=== PATIENT | male | born 1975 | race Caucasian/White ===

== ENCOUNTER 2021-04-23 20:45 | Observation (INO) ==
[2021-04-23 21:48] LABS: Hematocrit 40.4 % (37.5-50.1); Hemoglobin 13.7 g/dL (12.9-16.9); Immature Granulocytes % 0.6 % (0-4); Lymphocytes # 0.3 K/mcL (0.6-4.6); Mean Corpuscular HGB Conc 33.9 g/dL (31.6-35.5); Mean Corpuscular Hemoglobin 28.7 pg (28.0-33.3); Mean Corpuscular Volume 84.5 fL (83.0-100.0); Mean Platelet Volume 10.5 fL (9.4-12.4); Monocytes # 0.5 K/mcL (0.0-1.3); Monocytes % 7.8 %; Neutrophils # 5.5 K/mcL (1.6-8.9); Platelet Count 145 K/mcL (140-400); Red Blood Count 4.78 M/mcL (4.19-5.50); Red Cell Distribution Width 13.2 % (11.5-14.5); Segmented Neutrophils % 86.6 %; White Blood Count 6.4 K/mcL (4.3-11.1)
[2021-04-23 22:17] LABS: Acetaminophen < 10 mcg/mL (10-20); Alanine Aminotransferase 20 Units/L (7-52); Albumin 3.7 g/dL (3.5-5.7); Albumin/Globulin Ratio 1.2 (1.1-2.2); Alkaline Phosphatase 51 Units/L (34-104); Aspartate Amino Transferase 12 Units/L (13-39); BUN/Creatinine Ratio 22 (6-26); Bilirubin,Indirect 0.3 mg/dL (0.0-1.0); Bilirubin,Total 0.3 mg/dL (0.3-1.0); Blood Urea Nitrogen 15 mg/dL (6-20); Carbon Dioxide 27 mEq/L (23-29); Ethanol < 10 mg/dL (Less than 10); Globulin 3.1 g/dL (2.4-3.5); Glucose 114 mg/dL (70-105); Salicylate < 2.5 mg/dL (15.0-30.0); Total Protein 6.8 g/dL (6.4-8.9); eGFR For African Americans > 60 (> 60); eGFR For Non-African Americans > 60 (> 60)
[2021-04-23 22:21] LABS: Bilirubin,Urine Negative (Negative); Blood,Urine Negative (Negative); Clarity,Urine Clear (Clear); Color,Urine Colorless (Yellow); Glucose,Urine (UA) Normal (Normal); Ketones,Urine Negative (Negative); Leukocyte Esterase,Urine Negative (Negative); Nitrite,Urine Negative (Negative); Protein,Urine Negative (Neg-Trace); Specific Gravity,Urine 1.008 (1.010-1.025); Urobilinogen,Urine Normal (Normal)
[2021-04-23 22:24] LABS: Chloride 97 mEq/L (98-107); Osmolality,Calculated 276 (280-300); Potassium 4.8 mEq/L (3.5-5.1); Sodium 132 mEq/L (136-145)
[2021-04-23 22:30] LABS: Amphetamine Screen,Urine Negative ng/mL (Cutoff=1000); Barbiturate Screen,Urine Negative ng/mL (Cutoff=200); Benzodiazepines Screen,Urine Negative ng/mL (Cutoff=200); Cannabinoid Screen,Urine Negative ng/mL (Cutoff = 50); Cocaine Screen,Urine Negative ng/mL (Cutoff= 300); Opiate Screen,Urine Negative ng/mL (Cutoff=300); Phencyclidine Screen,Urine Negative ng/mL (Cutoff=25)
[2021-04-24 01:43] LABS: Influenza A PCR Negative (Negative); Influenza B PCR Negative (Negative); Resp. Syncytial Virus PCR Negative (Negative)
[2021-04-24 01:49] LABS: SARS-CoV-2 by PCR (In House) Positive (Negative)
[2021-04-24] MEDS ORDERED: *HR* HYDROcodone/Acet 5/325 mg TABLET PO PRN (02:26)
[2021-04-24] MEDS ORDERED: Melatonin 3 MG TABLET PO PRN (02:26)
[2021-04-24] MEDS ORDERED: MOM Conc 10 ML UD.LIQ PO PRN (02:26)
[2021-04-24] MEDS ORDERED: Ondansetron ODT 4 MG TAB.RAPDIS SL PRN (02:26)
[2021-04-24] MEDS ORDERED: Acetaminophen 325 MG TABLET PO PRN (02:26)
[2021-04-24] MEDS ORDERED: Naloxone 0.4 MG/ML INJ IVP PRN (02:26)
[2021-04-24 06:03] LABS: Hemoglobin 12.8 g/dL (12.9-16.9); Immature Granulocytes % 0.6 % (0-4); White Blood Count 5.1 K/mcL (4.3-11.1)
[2021-04-24 06:04] LABS: Basophils % 0.2 %; Eosinophils % 0.4 %; Hematocrit 39.4 % (37.5-50.1); Immature Platelets 6.5 % (1.1-6.1); Lymphocytes # 0.6 K/mcL (0.6-4.6); Lymphocytes % 11.4 %; Mean Corpuscular HGB Conc 32.5 g/dL (31.6-35.5); Mean Corpuscular Hemoglobin 27.8 pg (28.0-33.3); Mean Corpuscular Volume 85.5 fL (83.0-100.0); Mean Platelet Volume 10.6 fL (9.4-12.4); Monocytes # 0.4 K/mcL (0.0-1.3); Monocytes % 8.6 %; Platelet Count 134 K/mcL (140-400); Red Blood Count 4.61 M/mcL (4.19-5.50); Red Cell Distribution Width 13.5 % (11.5-14.5); Segmented Neutrophils % 78.8 %
[2021-04-24 07:36] LABS: BUN/Creatinine Ratio 23 (6-26); Blood Urea Nitrogen 16 mg/dL (6-20); Calcium 8.9 mg/dL (8.6-10.3); Carbon Dioxide 24 mEq/L (23-29); Chloride 98 mEq/L (98-107); Glucose 136 mg/dL (70-105); Osmolality,Calculated 277 (280-300); Potassium 4.1 mEq/L (3.5-5.1); Sodium 132 mEq/L (136-145); eGFR For African Americans > 60 (> 60); eGFR For Non-African Americans > 60 (> 60)
[2021-04-24] MEDS ORDERED: Benzonatate 100 MG CAPSULE PO PRN (10:34)
[2021-04-24 11:55] LABS: Estimated Average Glucose 126 mg/dl
[2021-04-25 02:47] VITALS: PULSE 51
[2021-04-25] MEDS ORDERED: *HR* Enoxaparin 40 MG/0.4 ML SYRINGE SQ SCH (06:00)
[2021-04-25 06:50] VITALS: BP 106/57; TEMP 98.4; O2SAT 97
== END 2021-04-25 12:15 | disposition home or self-care (01) ==
LOC: EMEROOARM 20:45 → 3ANU 20:45
PROVIDERS: ADMIT Internal Medicine; ATTEND Internal Medicine

== ENCOUNTER 2021-06-02 01:13 | Observation (INO) ==
[2021-06-02 01:56] LABS: Amphetamine Screen,Urine Negative ng/mL (Cutoff=1000); Barbiturate Screen,Urine Negative ng/mL (Cutoff=200); Benzodiazepines Screen,Urine Negative ng/mL (Cutoff=200); Cannabinoid Screen,Urine Negative ng/mL (Cutoff = 50); Cocaine Screen,Urine Negative ng/mL (Cutoff= 300); Opiate Screen,Urine Negative ng/mL (Cutoff=300); Phencyclidine Screen,Urine Negative ng/mL (Cutoff=25)
[2021-06-02 02:03] LABS: Acetaminophen < 10 mcg/mL (10-20); Alanine Aminotransferase 18 Units/L (7-52); Albumin/Globulin Ratio 1.2 (1.1-2.2); Alkaline Phosphatase 59 Units/L (34-104); Aspartate Amino Transferase 10 Units/L (13-39); BUN/Creatinine Ratio 16 (6-26); Bilirubin,Indirect 0.3 mg/dL (0.0-1.0); Bilirubin,Total 0.3 mg/dL (0.3-1.0); Blood Urea Nitrogen 12 mg/dL (6-20); Calcium 9.4 mg/dL (8.6-10.3); Carbon Dioxide 26 mEq/L (23-29); Chloride 98 mEq/L (98-107); Chol/HDL Ratio 4.1 (0-4.9); Cholesterol 173 mg/dL (< 200); Ethanol < 10 mg/dL (Less than 10); Globulin 3.3 g/dL (2.4-3.5); Glucose 198 mg/dL (70-105); HDL Cholesterol 42 mg/dL (40-59); LDL Cholesterol,Calculated 88 mg/dL (< 100); Osmolality,Calculated 279 (280-300); Potassium 4.3 mEq/L (3.5-5.1); Salicylate 2.5 mg/dL (15.0-30.0); Sodium 132 mEq/L (136-145); Total Protein 7.3 g/dL (6.4-8.9); Triglycerides 213 mg/dL (< 150); eGFR For African Americans > 60 (> 60); eGFR For Non-African Americans > 60 (> 60)
[2021-06-02 02:05] LABS: Bilirubin,Urine Negative (Negative); Blood,Urine Negative (Negative); Clarity,Urine Clear (Clear); Color,Urine Light-Yellow (Yellow); Glucose,Urine (UA) Normal (Normal); Ketones,Urine Negative (Negative); Leukocyte Esterase,Urine Negative (Negative); Nitrite,Urine Negative (Negative); PH,Urine 7.5 pH Units (5.0-8.0); Protein,Urine Trace mg/dL (Neg-Trace); Specific Gravity,Urine > 1.030 (1.010-1.025); Urobilinogen,Urine Normal (Normal)
[2021-06-02 02:18] LABS: Basophils % 0.1 %; Hematocrit 36.2 % (37.5-50.1); Immature Granulocytes % 0.1 % (0-4); Lymphocytes # 0.1 K/mcL (0.6-4.6); Lymphocytes % 1.9 %; Mean Corpuscular HGB Conc 33.1 g/dL (31.6-35.5); Mean Corpuscular Hemoglobin 28.6 pg (28.0-33.3); Mean Corpuscular Volume 86.4 fL (83.0-100.0); Mean Platelet Volume 10.7 fL (9.4-12.4); Monocytes # 0.2 K/mcL (0.0-1.3); Monocytes % 2.4 %; Neutrophils # 6.7 K/mcL (1.6-8.9); Platelet Count 107 K/mcL (140-400); Red Blood Count 4.19 M/mcL (4.19-5.50); Red Cell Distribution Width 16.5 % (11.5-14.5); Segmented Neutrophils % 95.5 %
[2021-06-02 02:26] LABS: Estimated Average Glucose 128 mg/dl; Hemoglobin A1C 6.1 %
[2021-06-02 05:23] LABS: Influenza A PCR Negative (Negative); Influenza B PCR Negative (Negative); Resp. Syncytial Virus PCR Negative (Negative)
[2021-06-02 05:24] LABS: SARS-CoV-2 by PCR (In House) Negative (Negative)
[2021-06-02] MEDS ORDERED: haloperidoL 5 MG TABLET PO PRN (12:05)
[2021-06-02] MEDS ORDERED: *HR* LORazepam 2 MG/ML VIAL IM PRN (12:05)
[2021-06-02] MEDS ORDERED: Mag Hydrox/Al Hydrox/Simeth 30 ML UDC PO PRN (12:05)
[2021-06-02] MEDS ORDERED: *HR* LORazepam 1 MG TABLET PO PRN (12:05)
[2021-06-02] MEDS ORDERED: Haloperidol Lactate 5 MG/ML VIAL IM PRN (12:05)
[2021-06-02] MEDS ORDERED: traZODone 50 MG TABLET PO PRN (12:05)
[2021-06-02] MEDS ORDERED: hydrOXYzine pamoate 25 MG CAPSULE PO PRN (12:05)
[2021-06-02] MEDS ORDERED: Magic Mouthwash 10 ML UD Cup PO PRN (12:09)
[2021-06-02] MEDS ORDERED: *HR* LORazepam 0.5 MG TABLET PO PRN (12:10)
[2021-06-02] MEDS ORDERED: Ondansetron ODT 4 MG TAB.RAPDIS SL PRN (12:11)
[2021-06-02] MEDS: Nicotine 21 MG PATCH.TD24 TD SCH (15:36)
[2021-06-02] MEDS: Sucralfate 1 GM TABLET PO SCH (17:09)
[2021-06-02] MEDS: MOM Conc 10 ML UD.LIQ PO PRN (17:13)
[2021-06-02] MEDS: Acetaminophen 325 MG TABLET PO PRN (20:58)
[2021-06-03] MEDS ORDERED: Nicotine 21 MG PATCH.TD24 TD SCH (09:00)
[2021-06-03] MEDS: Sucralfate 1 GM TABLET PO SCH ×2 (09:04→11:36)
[2021-06-03] MEDS: Nicotine 21 MG PATCH.TD24 TD SCH (09:04)
[2021-06-03] MEDS: Acetaminophen 325 MG TABLET PO PRN (09:08)
[2021-06-03 09:24] VITALS: BP 113/66; PULSE 80; TEMP 96.9; O2SAT 99
[2021-06-03] MEDS: MOM Conc 10 ML UD.LIQ PO PRN (11:19)
== END 2021-06-03 15:40 | disposition home or self-care (01) ==
LOC: EMEROOARM 01:13 → INTOOBSV 10:09 → 1ANU 10:09
PROVIDERS: ADMIT Psychiatry & Neurology Psychiatry; ATTEND Psychiatry & Neurology Psychiatry

== ENCOUNTER 2021-08-25 10:03 | Observation (INO) ==
[2021-08-25] MEDS ORDERED: Iopamidol - 370 500 ML MLS IVP ONE (11:16)
[2021-08-25] MEDS ORDERED: *HR* OxyCODONE Immed Rel 5 MG TABLET PO ONE (11:17)
[2021-08-25 12:29] LABS: Basophils % 0.6 %; Eosinophils # 0.1 K/mcL (0.0-0.6); Eosinophils % 2.4 %; Hematocrit 38.2 % (37.5-50.1); Hemoglobin 11.5 g/dL (12.9-16.9); Immature Granulocytes % 0.9 % (0-4); Lymphocytes # 0.4 K/mcL (0.6-4.6); Mean Corpuscular HGB Conc 30.1 g/dL (31.6-35.5); Mean Corpuscular Hemoglobin 29.5 pg (28.0-33.3); Mean Corpuscular Volume 97.9 fL (83.0-100.0); Mean Platelet Volume 9.9 fL (9.4-12.4); Monocytes # 0.4 K/mcL (0.0-1.3); Monocytes % 12.8 %; Neutrophils # 2.4 K/mcL (1.6-8.9); Platelet Count 230 K/mcL (140-400); Red Cell Distribution Width 13.7 % (11.5-14.5); Segmented Neutrophils % 72.3 %; White Blood Count 3.4 K/mcL (4.3-11.1)
[2021-08-25 12:54] LABS: Alanine Aminotransferase 10 Units/L (7-52); Albumin/Globulin Ratio 1.3 (1.1-2.2); Alkaline Phosphatase 60 Units/L (34-104); Aspartate Amino Transferase 11 Units/L (13-39); BUN/Creatinine Ratio 26 (6-26); Bilirubin,Total 0.3 mg/dL (0.3-1.0); Blood Urea Nitrogen 26 mg/dL (6-20); Calcium 9.4 mg/dL (8.6-10.3); Carbon Dioxide 29 mEq/L (23-29); Chloride 104 mEq/L (98-107); Globulin 3.1 g/dL (2.4-3.5); Glucose 84 mg/dL (70-105); Osmolality,Calculated 292 (280-300); Potassium 4.4 mEq/L (3.5-5.1); Sodium 139 mEq/L (136-145); Total Protein 7.1 g/dL (6.4-8.9); Troponin I < 0.03 ng/mL (< 0.04); eGFR For African Americans > 60 (> 60); eGFR For Non-African Americans > 60 (> 60)
[2021-08-25 15:45] LABS: Acetaminophen < 10 mcg/mL (10-20); Ethanol < 10 mg/dL (Less than 10); Salicylate < 2.5 mg/dL (15.0-30.0)
[2021-08-25] MEDS ORDERED: cephALEXin 500 MG CAPSULE PO ONE (18:00)
[2021-08-25 18:10] LABS: Bilirubin,Urine Negative (Negative); Blood,Urine Negative (Negative); Clarity,Urine Clear (Clear); Color,Urine Light-Yellow (Yellow); Glucose,Urine (UA) Normal (Normal); Ketones,Urine Negative (Negative); Leukocyte Esterase,Urine Negative (Negative); Nitrite,Urine Negative (Negative); PH,Urine 6.5 pH Units (5.0-8.0); Protein,Urine Negative (Neg-Trace); Specific Gravity,Urine > 1.030 (1.010-1.025); Urobilinogen,Urine Normal (Normal)
[2021-08-25 18:16] LABS: Amphetamine Screen,Urine Negative ng/mL (Cutoff=1000); Barbiturate Screen,Urine Negative ng/mL (Cutoff=200); Benzodiazepines Screen,Urine Negative ng/mL (Cutoff=200); Cannabinoid Screen,Urine Negative ng/mL (Cutoff = 50); Cocaine Screen,Urine Negative ng/mL (Cutoff= 300); Opiate Screen,Urine Negative ng/mL (Cutoff=300); Phencyclidine Screen,Urine Negative ng/mL (Cutoff=25)
[2021-08-25] MEDS ORDERED: Ondansetron ODT 4 MG TAB.RAPDIS SL PRN ×2 (21:45→23:48)
[2021-08-25] MEDS: *HR* LORazepam 0.5 MG TABLET PO PRN (22:08)
[2021-08-25] MEDS ORDERED: Naloxone 0.4 MG/ML INJ IVP PRN (23:48)
[2021-08-26] MEDS ORDERED: Ketorolac 30 MG/ML VIAL IVP PRN (00:30)
[2021-08-26] MEDS: Acetaminophen 325 MG TABLET PO PRN (05:08)
[2021-08-26] MEDS: Sucralfate 1 GM TABLET PO SCH ×3 (09:08→17:24)
[2021-08-26] MEDS: Magic Mouthwash 10 ML UD Cup PO SCH ×3 (09:08→18:19)
[2021-08-26] MEDS: Nicotine 21 MG PATCH.TD24 TD SCH (09:08)
[2021-08-26] MEDS: cephALEXin 500 MG CAPSULE PO SCH ×3 (13:34→21:16)
[2021-08-26] MEDS: Chloraseptic Spray 177 ML BOTTLE PO SCH ×2 (13:34→21:16)
[2021-08-26] MEDS: Famotidine 20 MG TABLET PO SCH ×2 (13:35→17:24)
[2021-08-27] MEDS: Artificial Tears SOLN 15 ML BOTTLE BOTH EYES SCH ×5 (04:56→20:39)
[2021-08-27] MEDS: *HR* LORazepam 0.5 MG TABLET PO PRN ×2 (06:00→20:36)
[2021-08-27] MEDS ORDERED: Iopamidol - 370 500 ML MLS IVP ONE (08:49)
[2021-08-27] MEDS: Nicotine 21 MG PATCH.TD24 TD SCH (10:02)
[2021-08-27] MEDS: Magic Mouthwash 10 ML UD Cup PO SCH ×3 (10:47→15:57)
[2021-08-27] MEDS: Chloraseptic Spray 177 ML BOTTLE PO SCH ×2 (10:48→20:38)
[2021-08-27] MEDS: Famotidine 20 MG TABLET PO SCH ×2 (10:48→16:31)
[2021-08-27] MEDS: Sucralfate 1 GM TABLET PO SCH ×3 (10:48→16:33)
[2021-08-27] MEDS: cephALEXin 500 MG CAPSULE PO SCH ×4 (10:48→20:36)
[2021-08-27] MEDS ORDERED: polyethylene glycoL 3350 17 GM POWD.PACK PO PRN (13:27)
[2021-08-28] MEDS: *HR* LORazepam 0.5 MG TABLET PO PRN ×2 (03:57→16:20)
[2021-08-28] MEDS: Famotidine 20 MG TABLET PO SCH ×2 (06:21→16:20)
[2021-08-28] MEDS: Magic Mouthwash 10 ML UD Cup PO SCH ×3 (06:22→16:20)
[2021-08-28] MEDS: Sucralfate 1 GM TABLET PO SCH ×3 (06:22→16:20)
[2021-08-28] MEDS: Nicotine 21 MG PATCH.TD24 TD SCH (08:17)
[2021-08-28] MEDS: cephALEXin 500 MG CAPSULE PO SCH (08:17)
[2021-08-28] MEDS: Artificial Tears SOLN 15 ML BOTTLE BOTH EYES SCH ×4 (08:19→20:43)
[2021-08-28] MEDS: Chloraseptic Spray 177 ML BOTTLE PO SCH ×2 (08:19→20:44)
[2021-08-28 10:09] LABS: Basophils % 0.5 %; Eosinophils # 0.1 K/mcL (0.0-0.6); Eosinophils % 1.7 %; Hematocrit 38.7 % (37.5-50.1); Hemoglobin 12.2 g/dL (12.9-16.9); Immature Granulocytes % 0.7 % (0-4); Lymphocytes # 0.5 K/mcL (0.6-4.6); Mean Corpuscular HGB Conc 31.5 g/dL (31.6-35.5); Mean Corpuscular Hemoglobin 29.6 pg (28.0-33.3); Mean Corpuscular Volume 93.9 fL (83.0-100.0); Mean Platelet Volume 9.7 fL (9.4-12.4); Monocytes # 0.5 K/mcL (0.0-1.3); Neutrophils # 2.9 K/mcL (1.6-8.9); Platelet Count 220 K/mcL (140-400); Red Blood Count 4.12 M/mcL (4.19-5.50); Red Cell Distribution Width 13.4 % (11.5-14.5); Segmented Neutrophils % 72.1 %; White Blood Count 4.1 K/mcL (4.3-11.1)
[2021-08-28] MEDS ORDERED: methylPREDNISolone 125 MG/2 ML VIAL IVP ONE (11:07)
[2021-08-28 12:40] LABS: BUN/Creatinine Ratio 23 (6-26); Blood Urea Nitrogen 18 mg/dL (6-20); Calcium 9.6 mg/dL (8.6-10.3); Carbon Dioxide 27 mEq/L (23-29); Chloride 101 mEq/L (98-107); Glucose 90 mg/dL (70-105); Osmolality,Calculated 283 (280-300); Potassium 4.1 mEq/L (3.5-5.1); Sodium 136 mEq/L (136-145); eGFR For African Americans > 60 (> 60); eGFR For Non-African Americans > 60 (> 60)
[2021-08-29 09:06] LABS: Chol/HDL Ratio 4.5 (0-4.9); Cholesterol 194 mg/dL (< 200); HDL Cholesterol 43 mg/dL (40-59); LDL Cholesterol,Calculated 106 mg/dL (< 100); Triglycerides 227 mg/dL (< 150)
[2021-08-29] MEDS: Artificial Tears SOLN 15 ML BOTTLE BOTH EYES SCH (09:42)
[2021-08-29] MEDS: Magic Mouthwash 10 ML UD Cup PO SCH (09:42)
[2021-08-29] MEDS: Chloraseptic Spray 177 ML BOTTLE PO SCH (09:42)
[2021-08-29] MEDS: Sucralfate 1 GM TABLET PO SCH (09:42)
[2021-08-29] MEDS: Famotidine 20 MG TABLET PO SCH (09:42)
[2021-08-29] MEDS: Nicotine 21 MG PATCH.TD24 TD SCH (09:43)
[2021-08-29 11:29] LABS: Estimated Average Glucose 74 mg/dl; Hemoglobin A1C 4.2 %
[2021-08-29 12:42] LABS: Influenza A PCR Negative (Negative); Influenza B PCR Negative (Negative); Resp. Syncytial Virus PCR Negative (Negative)
[2021-08-29 13:28] LABS: SARS-CoV-2 by PCR (In House) Negative (Negative)
[2021-08-29] MEDS: Acetaminophen 325 MG TABLET PO PRN (13:33)
[2021-08-29 15:40] VITALS: BP 138/74; PULSE 70; TEMP 98.3
[2021-08-29 16:03] VITALS: O2SAT 97
[2021-08-29] MEDS ORDERED: MOM Conc 10 ML UD.LIQ PO PRN (16:05)
[2021-08-29] MEDS ORDERED: Mag Hydrox/Al Hydrox/Simeth 30 ML UDC PO PRN (16:05)
[2021-08-29] MEDS ORDERED: haloperidoL 5 MG TABLET PO PRN (16:05)
[2021-08-29] MEDS ORDERED: *HR* LORazepam 2 MG/ML VIAL IM PRN (16:05)
== END 2021-08-29 16:06 ==
LOC: EMEROOARM 10:03 → 3BNU 10:03 → SUATTDRO 08-26 06:22 → 3BNU 08-26 08:56
PROVIDERS: ADMIT Internal Medicine; ATTEND Registered Nurse

== ENCOUNTER 2021-08-29 16:10 | Inpatient (IN) ==
[2021-08-29] MEDS ORDERED: haloperidoL 5 MG TABLET PO PRN (17:12)
[2021-08-29] MEDS ORDERED: *HR* LORazepam 2 MG/ML VIAL IM PRN (17:12)
[2021-08-29] MEDS ORDERED: Haloperidol Lactate 5 MG/ML VIAL IM PRN (17:12)
[2021-08-29] MEDS ORDERED: *HR* LORazepam 1 MG TABLET PO PRN (17:12)
[2021-08-29] MEDS ORDERED: PHENOL TP PRN (17:54)
[2021-08-29] MEDS ORDERED: CAMPHOR TP PRN (17:54)
[2021-08-29] MEDS: hydrOXYzine pamoate 25 MG CAPSULE PO PRN (18:36)
[2021-08-29] MEDS: Acetaminophen 325 MG TABLET PO PRN (18:55)
[2021-08-29] MEDS ORDERED: CLEAR EYES NATURAL TEARS 15 ML BOTTLE BOTH EYES PRN (19:29)
[2021-08-29] MEDS ORDERED: Chloraseptic Spray 177 ML BOTTLE MM PRN (19:30)
[2021-08-29] MEDS: Famotidine 20 MG TABLET PO SCH (20:54)
[2021-08-29] MEDS: *HR* LORazepam 0.5 MG TABLET PO SCH (20:54)
[2021-08-29] MEDS: traZODone 50 MG TABLET PO PRN (20:54)
[2021-08-30] MEDS: *HR* LORazepam 0.5 MG TABLET PO SCH ×3 (08:45→21:10)
[2021-08-30] MEDS: Famotidine 20 MG TABLET PO SCH ×2 (08:45→21:10)
[2021-08-30] MEDS: Nicotine 21 MG PATCH.TD24 TD SCH (08:46)
[2021-08-30] MEDS ORDERED: Cyprohepatdine 4 MG TABLET PO PRN (12:03)
[2021-08-30] MEDS: Acetaminophen 325 MG TABLET PO PRN (12:06)
[2021-08-30] MEDS: Oxymetazoline Nasal SPRAY BOTTLE 15ML NS PRN (15:20)
[2021-08-30] MEDS: Vicks Vaporub Oint 50 GM PACKAGE TP PRN (21:09)
[2021-08-30] MEDS: hydrOXYzine pamoate 25 MG CAPSULE PO PRN (21:10)
[2021-08-30] MEDS: traZODone 50 MG TABLET PO PRN (21:10)
[2021-08-31] MEDS: Famotidine 20 MG TABLET PO SCH ×2 (10:05→20:11)
[2021-08-31] MEDS: *HR* LORazepam 0.5 MG TABLET PO SCH ×3 (10:05→20:11)
[2021-08-31] MEDS: Nicotine 21 MG PATCH.TD24 TD SCH (10:06)
[2021-08-31] MEDS: Acetaminophen 325 MG TABLET PO PRN ×2 (11:23→19:01)
[2021-08-31] MEDS: Oxymetazoline Nasal SPRAY BOTTLE 15ML NS PRN (11:24)
[2021-08-31] MEDS: Vicks Vaporub Oint 50 GM PACKAGE TP PRN (21:02)
[2021-09-01] MEDS: Famotidine 20 MG TABLET PO SCH (08:47)
[2021-09-01] MEDS: Nicotine 21 MG PATCH.TD24 TD SCH (08:47)
[2021-09-01] MEDS: *HR* LORazepam 0.5 MG TABLET PO SCH (08:47)
[2021-09-01 09:53] VITALS: BP 147/82; PULSE 69; TEMP 96.8; O2SAT 98
[2021-09-01] MEDS: Acetaminophen 325 MG TABLET PO PRN (11:02)
[2021-09-01] MEDS: Oxymetazoline Nasal SPRAY BOTTLE 15ML NS PRN (11:18)
== END 2021-09-01 13:46 | disposition other institution (70) | DRG 751 ==
LOC: 1ANU 16:10 → MERGE 16:10 → 1ANU 16:25
PROVIDERS: ADMIT Psychiatry & Neurology Forensic Psychiatry; ATTEND Psychiatry & Neurology Forensic Psychiatry

== ENCOUNTER 2021-09-01 12:55 | Observation (INO) ==
[2021-09-01] MEDS ORDERED: MOM Conc 10 ML UD.LIQ PO PRN (13:01)
[2021-09-01] MEDS ORDERED: Naloxone 0.4 MG/ML INJ IVP PRN (13:01)
[2021-09-01] MEDS ORDERED: Melatonin 3 MG TABLET PO PRN (13:01)
[2021-09-01] MEDS ORDERED: Mag Hydrox/Al Hydrox/Simeth 30 ML UDC PO PRN (13:01)
[2021-09-01] MEDS ORDERED: Ondansetron ODT 4 MG TAB.RAPDIS SL PRN (13:01)
[2021-09-01] MEDS ORDERED: Iopamidol - 370 500 ML MLS IVP ONE (13:04)
[2021-09-01] MEDS ORDERED: methylPREDNISolone 125 MG/2 ML VIAL IVP ONE (14:27)
[2021-09-01] MEDS ORDERED: Chloraseptic Spray 177 ML BOTTLE MM PRN (14:28)
[2021-09-01] MEDS ORDERED: traZODone 50 MG TABLET PO PRN (14:28)
[2021-09-01] MEDS ORDERED: haloperidoL 5 MG TABLET PO PRN (14:28)
[2021-09-01] MEDS ORDERED: *HR* LORazepam 1 MG TABLET PO PRN (14:28)
[2021-09-01] MEDS ORDERED: hydrOXYzine pamoate 25 MG CAPSULE PO PRN (14:28)
[2021-09-01 14:29] LABS: Basophils % 0.5 %; Eosinophils # 0.1 K/mcL (0.0-0.6); Eosinophils % 1.4 %; Hematocrit 36.5 % (37.5-50.1); Hemoglobin 11.4 g/dL (12.9-16.9); Immature Granulocytes % 1.6 % (0-4); Lymphocytes # 0.7 K/mcL (0.6-4.6); Lymphocytes % 12.1 %; Mean Corpuscular HGB Conc 31.2 g/dL (31.6-35.5); Mean Corpuscular Hemoglobin 29.8 pg (28.0-33.3); Mean Corpuscular Volume 95.5 fL (83.0-100.0); Mean Platelet Volume 10.3 fL (9.4-12.4); Monocytes # 0.6 K/mcL (0.0-1.3); Monocytes % 11.1 %; Neutrophils # 4.1 K/mcL (1.6-8.9); Platelet Count 197 K/mcL (140-400); Red Blood Count 3.82 M/mcL (4.19-5.50); Red Cell Distribution Width 13.2 % (11.5-14.5); Segmented Neutrophils % 73.3 %; White Blood Count 5.6 K/mcL (4.3-11.1)
[2021-09-01] MEDS ORDERED: Vancomycin 1,750 MG/517.5 ML IV.SOLN IVPB ONE (15:00)
[2021-09-01 15:03] LABS: Alanine Aminotransferase 10 Units/L (7-52); Albumin 3.8 g/dL (3.5-5.7); Albumin/Globulin Ratio 1.4 (1.1-2.2); Alkaline Phosphatase 64 Units/L (34-104); Aspartate Amino Transferase 11 Units/L (13-39); BUN/Creatinine Ratio 27 (6-26); Bilirubin,Total 0.2 mg/dL (0.3-1.0); Blood Urea Nitrogen 21 mg/dL (6-20); Calcium 9.1 mg/dL (8.6-10.3); Carbon Dioxide 28 mEq/L (23-29); Chloride 101 mEq/L (98-107); Globulin 2.8 g/dL (2.4-3.5); Glucose 121 mg/dL (70-105); Osmolality,Calculated 290 (280-300); Potassium 4.3 mEq/L (3.5-5.1); Sodium 138 mEq/L (136-145); Total Protein 6.6 g/dL (6.4-8.9); eGFR For African Americans > 60 (> 60); eGFR For Non-African Americans > 60 (> 60)
[2021-09-01] MEDS: *HR* LORazepam 0.5 MG TABLET PO SCH ×2 (15:19→20:48)
[2021-09-01] MEDS: Ipratropium/Albuterol Neb 3 ML IH SCH ×3 (15:41→23:53)
[2021-09-01] MEDS ORDERED: Piperacillin/Tazobactam 3.375 GM in 0.9 % Sodium Chloride Mini Bag 100 ML IVPB SCH (16:00)
[2021-09-01] MEDS: Famotidine 20 MG TABLET PO SCH (20:48)
[2021-09-02] MEDS ORDERED: Vancomycin 1,750 MG/517.5 ML IV.SOLN IVPB SCH (03:00)
[2021-09-02] MEDS: Ipratropium/Albuterol Neb 3 ML IH SCH ×2 (03:52→07:26)
[2021-09-02] MEDS ORDERED: *HR* Enoxaparin 40 MG/0.4 ML SYRINGE SQ SCH (06:00)
[2021-09-02] MEDS: Famotidine 20 MG TABLET PO SCH (08:08)
[2021-09-02] MEDS: *HR* LORazepam 0.5 MG TABLET PO SCH ×2 (08:08→15:18)
[2021-09-02] MEDS ORDERED: Nicotine 21 MG PATCH.TD24 TD SCH (09:00)
[2021-09-02 11:05] VITALS: BP 135/69; PULSE 75; TEMP 97.9; O2SAT 99
[2021-09-02] MEDS ORDERED: Ipratropium/Albuterol Neb 3 ML IH PRN (11:45)
== END 2021-09-02 15:53 ==
LOC: 3BNU → SUATTDRO 14:04
PROVIDERS: ADMIT Internal Medicine; ATTEND Registered Nurse

== ENCOUNTER 2021-09-02 15:23 | Inpatient (IN) ==
[2021-09-02] MEDS ORDERED: haloperidoL 5 MG TABLET PO PRN (16:02)
[2021-09-02] MEDS ORDERED: *HR* LORazepam 1 MG TABLET PO PRN (16:02)
[2021-09-02] MEDS ORDERED: *HR* LORazepam 2 MG/ML VIAL IM PRN (16:02)
[2021-09-02] MEDS ORDERED: Haloperidol Lactate 5 MG/ML VIAL IM PRN (16:02)
[2021-09-02] MEDS: Acetaminophen 325 MG TABLET PO PRN (17:01)
[2021-09-02] MEDS: traZODone 50 MG TABLET PO PRN (20:43)
[2021-09-02] MEDS: Famotidine 20 MG TABLET PO SCH (20:43)
[2021-09-02] MEDS: *HR* LORazepam 0.5 MG TABLET PO SCH (20:43)
[2021-09-02] MEDS: Oxymetazoline Nasal SPRAY BOTTLE 15ML NS PRN (20:44)
[2021-09-02] MEDS ORDERED: Chloraseptic Spray 177 ML BOTTLE PO SCH (21:00)
[2021-09-02] MEDS: CLEAR EYES NATURAL TEARS 15 ML BOTTLE BOTH EYES PRN (21:41)
[2021-09-02] MEDS: Vicks Vaporub Oint 50 GM PACKAGE TP PRN (21:43)
[2021-09-03] MEDS: Famotidine 20 MG TABLET PO SCH ×2 (08:57→20:17)
[2021-09-03] MEDS: *HR* LORazepam 0.5 MG TABLET PO SCH ×3 (08:57→20:17)
[2021-09-03] MEDS: MOM Conc 10 ML UD.LIQ PO PRN (10:33)
[2021-09-03] MEDS: Acetaminophen 325 MG TABLET PO PRN ×2 (11:20→17:54)
[2021-09-03] MEDS: Chloraseptic Spray 177 ML BOTTLE MM PRN (13:49)
[2021-09-03] MEDS: traZODone 50 MG TABLET PO PRN (20:17)
[2021-09-03] MEDS: Oxymetazoline Nasal SPRAY BOTTLE 15ML NS PRN (20:24)
[2021-09-04] MEDS: *HR* LORazepam 0.5 MG TABLET PO SCH ×3 (08:36→20:03)
[2021-09-04] MEDS: Famotidine 20 MG TABLET PO SCH ×2 (08:38→20:03)
[2021-09-04 09:16] LABS: Basophils % 0.6 %; Eosinophils # 0.1 K/mcL (0.0-0.6); Eosinophils % 1.4 %; Hematocrit 37.1 % (37.5-50.1); Hemoglobin 11.3 g/dL (12.9-16.9); Immature Granulocytes % 4.6 % (0-4); Lymphocytes # 0.6 K/mcL (0.6-4.6); Lymphocytes % 8.5 %; Mean Corpuscular HGB Conc 30.5 g/dL (31.6-35.5); Mean Corpuscular Hemoglobin 29.3 pg (28.0-33.3); Mean Corpuscular Volume 96.1 fL (83.0-100.0); Mean Platelet Volume 10.3 fL (9.4-12.4); Monocytes # 0.7 K/mcL (0.0-1.3); Monocytes % 10.5 %; Neutrophils # 4.9 K/mcL (1.6-8.9); Platelet Count 187 K/mcL (140-400); Red Blood Count 3.86 M/mcL (4.19-5.50); Red Cell Distribution Width 13.5 % (11.5-14.5); Segmented Neutrophils % 74.4 %; White Blood Count 6.6 K/mcL (4.3-11.1)
[2021-09-04] MEDS: Acetaminophen 325 MG TABLET PO PRN (16:34)
[2021-09-04] MEDS: Oxymetazoline Nasal SPRAY BOTTLE 15ML NS PRN ×2 (16:55→20:04)
[2021-09-04] MEDS: Chloraseptic Spray 177 ML BOTTLE MM PRN (16:55)
[2021-09-04] MEDS: Mag Hydrox/Al Hydrox/Simeth 30 ML UDC PO PRN (18:31)
[2021-09-04] MEDS: traZODone 50 MG TABLET PO PRN (20:03)
[2021-09-04] MEDS: Vicks Vaporub Oint 50 GM PACKAGE TP PRN (20:04)
[2021-09-04] MEDS: hydrOXYzine pamoate 25 MG CAPSULE PO PRN (21:23)
[2021-09-05] MEDS: Mag Hydrox/Al Hydrox/Simeth 30 ML UDC PO PRN ×2 (06:53→16:23)
[2021-09-05] MEDS: Oxymetazoline Nasal SPRAY BOTTLE 15ML NS PRN ×2 (06:54→20:44)
[2021-09-05] MEDS: Famotidine 20 MG TABLET PO SCH ×2 (08:08→20:44)
[2021-09-05] MEDS: *HR* LORazepam 0.5 MG TABLET PO SCH ×3 (08:08→20:43)
[2021-09-05] MEDS: Acetaminophen 325 MG TABLET PO PRN ×2 (10:07→20:43)
[2021-09-05] MEDS ORDERED: Iopamidol - 370 500 ML MLS IVP ONE ×2 (12:32→14:54)
[2021-09-05] MEDS: Clotrimazole 1% CRM 15 GM TUBE TP SCH ×2 (14:18→20:45)
[2021-09-05] MEDS: Chloraseptic Spray 177 ML BOTTLE MM PRN ×2 (14:21→20:49)
[2021-09-05] MEDS: hydrOXYzine pamoate 25 MG CAPSULE PO PRN (20:43)
[2021-09-05] MEDS: traZODone 50 MG TABLET PO PRN (20:44)
[2021-09-05] MEDS: CLEAR EYES NATURAL TEARS 15 ML BOTTLE BOTH EYES PRN (20:45)
[2021-09-06] MEDS: *HR* LORazepam 0.5 MG TABLET PO SCH ×3 (08:19→21:10)
[2021-09-06] MEDS: Clotrimazole 1% CRM 15 GM TUBE TP SCH ×2 (08:19→21:12)
[2021-09-06] MEDS: Famotidine 20 MG TABLET PO SCH ×2 (08:20→21:11)
[2021-09-06] MEDS: Vicks Vaporub Oint 50 GM PACKAGE TP PRN ×2 (09:18→21:12)
[2021-09-06] MEDS: CLEAR EYES NATURAL TEARS 15 ML BOTTLE BOTH EYES PRN (09:18)
[2021-09-06] MEDS: MOM Conc 10 ML UD.LIQ PO PRN (12:37)
[2021-09-06] MEDS: Acetaminophen 325 MG TABLET PO PRN ×2 (12:51→21:11)
[2021-09-06] MEDS: Chloraseptic Spray 177 ML BOTTLE MM PRN (12:52)
[2021-09-06] MEDS: Mag Hydrox/Al Hydrox/Simeth 30 ML UDC PO PRN ×2 (14:45→21:12)
[2021-09-06] MEDS: Ibuprofen 600 MG TABLET PO PRN (17:41)
[2021-09-06] MEDS: Cyprohepatdine 4 MG TABLET PO PRN (18:07)
[2021-09-06] MEDS: hydrOXYzine pamoate 25 MG CAPSULE PO PRN (21:10)
[2021-09-06] MEDS: traZODone 50 MG TABLET PO PRN (21:11)
[2021-09-06] MEDS: Oxymetazoline Nasal SPRAY BOTTLE 15ML NS PRN (21:12)
[2021-09-07] MEDS: *HR* LORazepam 0.5 MG TABLET PO SCH ×3 (08:40→20:48)
[2021-09-07] MEDS: Clotrimazole 1% CRM 15 GM TUBE TP SCH ×2 (08:40→21:07)
[2021-09-07] MEDS: Famotidine 20 MG TABLET PO SCH ×2 (08:40→20:48)
[2021-09-07] MEDS: Ibuprofen 600 MG TABLET PO PRN (09:56)
[2021-09-07] MEDS: Chloraseptic Spray 177 ML BOTTLE MM PRN (09:56)
[2021-09-07] MEDS: Acetaminophen 325 MG TABLET PO PRN ×2 (16:54→20:47)
[2021-09-07] MEDS: Mag Hydrox/Al Hydrox/Simeth 30 ML UDC PO PRN (17:05)
[2021-09-07] MEDS: CLEAR EYES NATURAL TEARS 15 ML BOTTLE BOTH EYES PRN ×2 (18:02→20:52)
[2021-09-07] MEDS: Cyprohepatdine 4 MG TABLET PO PRN (19:08)
[2021-09-07] MEDS: hydrOXYzine pamoate 25 MG CAPSULE PO PRN (20:48)
[2021-09-07] MEDS: traZODone 50 MG TABLET PO PRN (20:48)
[2021-09-07] MEDS: Oxymetazoline Nasal SPRAY BOTTLE 15ML NS PRN (20:51)
[2021-09-07] MEDS: Vicks Vaporub Oint 50 GM PACKAGE TP PRN (20:52)
[2021-09-08] MEDS: Famotidine 20 MG TABLET PO SCH ×2 (08:44→20:20)
[2021-09-08] MEDS: Clotrimazole 1% CRM 15 GM TUBE TP SCH ×2 (08:44→20:20)
[2021-09-08] MEDS: *HR* LORazepam 0.5 MG TABLET PO SCH ×3 (08:44→20:20)
[2021-09-08] MEDS: Acetaminophen 325 MG TABLET PO PRN (17:20)
[2021-09-08] MEDS: Vicks Vaporub Oint 50 GM PACKAGE TP PRN (20:21)
[2021-09-08] MEDS: CLEAR EYES NATURAL TEARS 15 ML BOTTLE BOTH EYES PRN (20:21)
[2021-09-08] MEDS: traZODone 50 MG TABLET PO PRN (20:23)
[2021-09-09] MEDS: *HR* LORazepam 0.5 MG TABLET PO SCH ×3 (08:27→20:29)
[2021-09-09] MEDS: Famotidine 20 MG TABLET PO SCH ×2 (08:27→20:29)
[2021-09-09] MEDS: Clotrimazole 1% CRM 15 GM TUBE TP SCH ×2 (08:45→20:29)
[2021-09-09] MEDS: Ibuprofen 600 MG TABLET PO PRN ×2 (09:10→20:29)
[2021-09-09] MEDS: Chloraseptic Spray 177 ML BOTTLE MM PRN (10:03)
[2021-09-09] MEDS: Mag Hydrox/Al Hydrox/Simeth 30 ML UDC PO PRN ×2 (11:48→23:19)
[2021-09-09] MEDS: CLEAR EYES NATURAL TEARS 15 ML BOTTLE BOTH EYES PRN (20:29)
[2021-09-09] MEDS: Vicks Vaporub Oint 50 GM PACKAGE TP PRN (21:23)
[2021-09-09] MEDS: traZODone 50 MG TABLET PO PRN (21:24)
[2021-09-10 08:45] VITALS: BP 121/76; PULSE 54; TEMP 98.1; O2SAT 100
[2021-09-10] MEDS: Famotidine 20 MG TABLET PO SCH (08:54)
[2021-09-10] MEDS: Clotrimazole 1% CRM 15 GM TUBE TP SCH (08:54)
[2021-09-10] MEDS: *HR* LORazepam 0.5 MG TABLET PO SCH (08:54)
[2021-09-10] MEDS ORDERED: Moderna Covid-19 Vaccine 100MCG/0.5mL IM ONE (09:57)
[2021-09-10] MEDS: Acetaminophen 325 MG TABLET PO PRN (12:01)
== END 2021-09-10 13:05 | disposition home or self-care (01) | DRG 751 ==
LOC: 1ANU 15:23
PROVIDERS: ADMIT Psychiatry & Neurology Psychiatry; ATTEND Psychiatry & Neurology Psychiatry

== ENCOUNTER 2021-09-27 07:57 | Observation (INO) ==
[2021-09-27 09:34] LABS: Basophils % 0.3 %; Eosinophils # 0.1 K/mcL (0.0-0.6); Eosinophils % 1.7 %; Hematocrit 40.2 % (37.5-50.1); Hemoglobin 12.8 g/dL (12.9-16.9); Immature Granulocytes % 0.6 % (0-4); Lymphocytes # 0.6 K/mcL (0.6-4.6); Lymphocytes % 7.8 %; Mean Corpuscular HGB Conc 31.8 g/dL (31.6-35.5); Mean Corpuscular Hemoglobin 28.4 pg (28.0-33.3); Mean Corpuscular Volume 89.1 fL (83.0-100.0); Mean Platelet Volume 9.5 fL (9.4-12.4); Monocytes # 0.6 K/mcL (0.0-1.3); Monocytes % 8.6 %; Neutrophils # 5.8 K/mcL (1.6-8.9); Platelet Count 184 K/mcL (140-400); Red Blood Count 4.51 M/mcL (4.19-5.50); Red Cell Distribution Width 13.1 % (11.5-14.5); White Blood Count 7.1 K/mcL (4.3-11.1)
[2021-09-27 09:45] LABS: INR 1.1; Prothrombin Time 11.7 Seconds (9.4-12.1)
[2021-09-27 09:53] LABS: BUN/Creatinine Ratio 17 (6-26); Blood Urea Nitrogen 15 mg/dL (6-20); Calcium 9.5 mg/dL (8.6-10.3); Carbon Dioxide 30 mEq/L (23-29); Chloride 102 mEq/L (98-107); Glucose 96 mg/dL (70-105); Osmolality,Calculated 285 (280-300); Potassium 4.8 mEq/L (3.5-5.1); Sodium 137 mEq/L (136-145); eGFR For African Americans > 60 (> 60); eGFR For Non-African Americans > 60 (> 60)
[2021-09-27] MEDS ORDERED: Iopamidol - 370 500 ML MLS IVP ONE ×2 (10:05→13:21)
[2021-09-27 10:12] LABS: Influenza A PCR Negative (Negative); Influenza B PCR Negative (Negative); Resp. Syncytial Virus PCR Negative (Negative)
[2021-09-27 10:27] LABS: SARS-CoV-2 by PCR (In House) Negative (Negative)
[2021-09-27] MEDS ORDERED: Piperacillin/Tazobactam 3.375 GM in 0.9 % Sodium Chloride Mini Bag 100 ML IVPB ONE (12:12)
[2021-09-27] MEDS ORDERED: Naloxone 0.4 MG/ML INJ IVP PRN (12:56)
[2021-09-27] MEDS ORDERED: Ondansetron 4 MG/2 ML VIAL IVP PRN (12:56)
[2021-09-27] MEDS ORDERED: hydrOXYzine pamoate 25 MG CAPSULE PO PRN (13:38)
[2021-09-27] MEDS ORDERED: Chloraseptic Spray 177 ML BOTTLE MM PRN (13:38)
[2021-09-27] MEDS ORDERED: traZODone 50 MG TABLET PO PRN (13:38)
[2021-09-27] MEDS ORDERED: Oxymetazoline Nasal SPRAY BOTTLE 15ML NS PRN (13:38)
[2021-09-27] MEDS ORDERED: Cyprohepatdine 4 MG TABLET PO PRN (13:38)
[2021-09-27] MEDS: Piperacillin/Tazobactam 3.375 GM in 0.9 % Sodium Chloride Mini Bag 100 ML IVPB SCH ×2 (14:55→22:53)
[2021-09-27] MEDS: *HR* LORazepam 0.5 MG TABLET PO SCH ×2 (14:55→20:03)
[2021-09-27] MEDS: Divalproex (24 HR) 500 MG TABLET PO SCH (20:03)
[2021-09-27] MEDS: Clotrimazole 1% CRM 15 GM TUBE TP SCH (20:04)
[2021-09-28 02:07] LABS: Basophils % 0.7 %; Eosinophils # 0.2 K/mcL (0.0-0.6); Eosinophils % 3.6 %; Hematocrit 36.6 % (37.5-50.1); Hemoglobin 11.8 g/dL (12.9-16.9); Immature Granulocytes % 0.9 % (0-4); Lymphocytes # 0.4 K/mcL (0.6-4.6); Lymphocytes % 8.6 %; Mean Corpuscular HGB Conc 32.2 g/dL (31.6-35.5); Mean Corpuscular Hemoglobin 28.6 pg (28.0-33.3); Mean Corpuscular Volume 88.6 fL (83.0-100.0); Mean Platelet Volume 9.8 fL (9.4-12.4); Monocytes # 0.6 K/mcL (0.0-1.3); Monocytes % 13.4 %; Neutrophils # 3.2 K/mcL (1.6-8.9); Platelet Count 156 K/mcL (140-400); Red Blood Count 4.13 M/mcL (4.19-5.50); Red Cell Distribution Width 13.2 % (11.5-14.5); Segmented Neutrophils % 72.8 %; White Blood Count 4.4 K/mcL (4.3-11.1)
[2021-09-28 02:30] LABS: BUN/Creatinine Ratio 13 (6-26); Blood Urea Nitrogen 13 mg/dL (6-20); Calcium 9.1 mg/dL (8.6-10.3); Carbon Dioxide 31 mEq/L (23-29); Chloride 102 mEq/L (98-107); Glucose 95 mg/dL (70-105); Magnesium 2.1 mg/dL (1.6-2.6); Osmolality,Calculated 286 (280-300); Phosphorous 4.1 mg/dL (2.7-4.5); Potassium 4.2 mEq/L (3.5-5.1); Sodium 138 mEq/L (136-145); eGFR For African Americans > 60 (> 60); eGFR For Non-African Americans > 60 (> 60)
[2021-09-28] MEDS: *HR* LORazepam 0.5 MG TABLET PO SCH ×3 (07:54→20:14)
[2021-09-28] MEDS: Acetaminophen 325 MG TABLET PO PRN ×2 (07:56→23:17)
[2021-09-28] MEDS: Piperacillin/Tazobactam 3.375 GM in 0.9 % Sodium Chloride Mini Bag 100 ML IVPB SCH ×3 (07:57→23:14)
[2021-09-28] MEDS: Clotrimazole 1% CRM 15 GM TUBE TP SCH ×2 (09:36→20:14)
[2021-09-28] MEDS: Famotidine 20 MG TABLET PO SCH (15:48)
[2021-09-28] MEDS: Divalproex (24 HR) 500 MG TABLET PO SCH (20:14)
[2021-09-29 07:21] LABS: Mean Corpuscular HGB Conc 31.6 g/dL (31.6-35.5); Mean Corpuscular Volume 88.8 fL (83.0-100.0); Platelet Count 174 K/mcL (140-400); Red Blood Count 4.28 M/mcL (4.19-5.50); White Blood Count 4.6 K/mcL (4.3-11.1)
[2021-09-29] MEDS: Piperacillin/Tazobactam 3.375 GM in 0.9 % Sodium Chloride Mini Bag 100 ML IVPB SCH (07:41)
[2021-09-29] MEDS: Famotidine 20 MG TABLET PO SCH (07:41)
[2021-09-29] MEDS: Acetaminophen 325 MG TABLET PO PRN (07:41)
[2021-09-29] MEDS: *HR* LORazepam 0.5 MG TABLET PO SCH (07:41)
[2021-09-29 07:42] LABS: BUN/Creatinine Ratio 22 (6-26); Blood Urea Nitrogen 21 mg/dL (6-20); Calcium 9.1 mg/dL (8.6-10.3); Carbon Dioxide 31 mEq/L (23-29); Chloride 102 mEq/L (98-107); Glucose 91 mg/dL (70-105); Osmolality,Calculated 289 (280-300); Potassium 4.6 mEq/L (3.5-5.1); Sodium 138 mEq/L (136-145); eGFR For African Americans > 60 (> 60); eGFR For Non-African Americans > 60 (> 60)
[2021-09-29 10:26] VITALS: BP 119/77; PULSE 70; TEMP 98.1; O2SAT 98
[2021-09-29] MEDS: Clotrimazole 1% CRM 15 GM TUBE TP SCH (10:33)
== END 2021-09-29 12:24 | disposition home or self-care (01) ==
LOC: EMEROOARM 07:57 → 3BNU 07:57
PROVIDERS: ADMIT Internal Medicine; ATTEND Internal Medicine

== ENCOUNTER 2021-10-19 11:28 | Inpatient (IN) ==
[2021-10-19] MEDS ORDERED: Ipratropium/Albuterol Neb 3 ML IH ONE (11:48)
[2021-10-19 12:02] LABS: Basophils % 0.2 %; Eosinophils % 0.1 %; Hematocrit 43.5 % (37.5-50.1); Hemoglobin 13.8 g/dL (12.9-16.9); Immature Granulocytes % 0.3 % (0-4); Lymphocytes # 0.3 K/mcL (0.6-4.6); Lymphocytes % 2.7 %; Mean Corpuscular HGB Conc 31.7 g/dL (31.6-35.5); Mean Corpuscular Hemoglobin 27.6 pg (28.0-33.3); Mean Platelet Volume 10.6 fL (9.4-12.4); Monocytes # 0.7 K/mcL (0.0-1.3); Monocytes % 6.3 %; Neutrophils # 9.4 K/mcL (1.6-8.9); Platelet Count 168 K/mcL (140-400); Red Cell Distribution Width 13.5 % (11.5-14.5); Segmented Neutrophils % 90.4 %
[2021-10-19 12:03] LABS: White Blood Count 10.4 K/mcL (4.3-11.1)
[2021-10-19 12:19] LABS: INR 1.2; Prothrombin Time 12.9 Seconds (9.4-12.1)
[2021-10-19 12:24] LABS: BUN/Creatinine Ratio 24 (6-26); Blood Urea Nitrogen 21 mg/dL (6-20); Calcium 9.4 mg/dL (8.6-10.3); Carbon Dioxide 27 mEq/L (23-29); Chloride 102 mEq/L (98-107); Glucose 110 mg/dL (70-105); Osmolality,Calculated 290 (280-300); Potassium 4.2 mEq/L (3.5-5.1); Sodium 138 mEq/L (136-145); Valproate 28 mcg/mL (50-100)
[2021-10-19 12:29] LABS: Troponin I 0.46 ng/mL (< 0.04)
[2021-10-19] MEDS ORDERED: Azithromycin 500 MG in D5% in Water 250 ML IVPB ONE (12:37)
[2021-10-19] MEDS ORDERED: cefTRIAXone 1,000 MG in 0.9 % Sodium Chloride Mini Bag 100 ML IVPB STA (12:37)
[2021-10-19] MEDS ORDERED: Piperacillin/Tazobactam 3.375 GM in 0.9 % Sodium Chloride Mini Bag 100 ML IVPB ONE (12:45)
[2021-10-19] MEDS ORDERED: Vancomycin 1,750 MG/517.5 ML IV.SOLN IVPB ONE (13:00)
[2021-10-19] MEDS ORDERED: Naloxone 0.4 MG/ML INJ IVP PRN (13:54)
[2021-10-19] MEDS ORDERED: Ondansetron ODT 4 MG TAB.RAPDIS SL PRN (13:54)
[2021-10-19] MEDS ORDERED: traZODone 50 MG TABLET PO PRN (14:02)
[2021-10-19] MEDS: Acetaminophen 325 MG TABLET PO PRN (17:42)
[2021-10-19] MEDS: Divalproex (24 HR) 500 MG TABLET PO SCH (21:54)
[2021-10-19] MEDS: *HR* Heparin 5,000 UNIT/ML VIAL SQ SCH (21:54)
[2021-10-20] MEDS: Acetaminophen 325 MG TABLET PO PRN ×2 (02:27→11:34)
[2021-10-20 03:24] LABS: Basophils % 0.4 %; Eosinophils # 0.1 K/mcL (0.0-0.6); Eosinophils % 1.5 %; Hematocrit 37.1 % (37.5-50.1); Immature Granulocytes % 0.4 % (0-4); Lymphocytes # 0.6 K/mcL (0.6-4.6); Lymphocytes % 7.6 %; Mean Corpuscular HGB Conc 32.3 g/dL (31.6-35.5); Mean Corpuscular Hemoglobin 28.2 pg (28.0-33.3); Mean Corpuscular Volume 87.3 fL (83.0-100.0); Mean Platelet Volume 10.2 fL (9.4-12.4); Monocytes # 0.9 K/mcL (0.0-1.3); Monocytes % 11.6 %; Neutrophils # 6.1 K/mcL (1.6-8.9); Platelet Count 153 K/mcL (140-400); Red Blood Count 4.25 M/mcL (4.19-5.50); Red Cell Distribution Width 13.6 % (11.5-14.5); Segmented Neutrophils % 78.5 %; White Blood Count 7.8 K/mcL (4.3-11.1)
[2021-10-20 03:47] LABS: Troponin I 0.58 ng/mL (< 0.04)
[2021-10-20] MEDS: *HR* Heparin 5,000 UNIT/ML VIAL SQ SCH ×3 (05:14→21:18)
[2021-10-20 05:49] LABS: Adenovirus Not Detected (Not Detect); Bordetella Pertussis Not Detected (Not Detect); Chlamydophila pneumoniae Not Detected (Not Detect); Coronavirus 229E Not Detected (Not Detect); Coronavirus HKU1 Not Detected (Not Detect); Coronavirus NL63 Not Detected (Not Detect); Coronavirus OC43 Not Detected (Not Detect); Human Metapneumovirus Not Detected (Not Detect); Human Rhinovirus/Enterovirus Not Detected (Not Detect); Influenza A Subtype 2009 H1 Not Detected (Not Detect); Influenza B Not Detected (Not Detect); Mycoplasma pneumoniae Not Detected (Not Detect); Parainfluenza Virus 1 Not Detected (Not Detect); Parainfluenza Virus 2 Not Detected (Not Detect); Parainfluenza Virus 3 Not Detected (Not Detect); Parainfluenza Virus 4 Not Detected (Not Detect); Respiratory Syncytial Virus Not Detected (Not Detect); SARS-CoV-2 Not Detected (Not Detect)
[2021-10-20] MEDS: Aspirin Enteric Coated 81 MG Tablet PO SCH (08:50)
[2021-10-20] MEDS: Ipratropium/Albuterol Neb 3 ML IH PRN ×2 (09:13→13:36)
[2021-10-20 09:35] LABS: BUN/Creatinine Ratio 27 (6-26); Blood Urea Nitrogen 22 mg/dL (6-20); Calcium 8.7 mg/dL (8.6-10.3); Carbon Dioxide 25 mEq/L (23-29); Chloride 105 mEq/L (98-107); Glucose 97 mg/dL (70-105); Magnesium 2.1 mg/dL (1.6-2.6); Osmolality,Calculated 291 (280-300); Phosphorous 3.4 mg/dL (2.7-4.5); Potassium 3.9 mEq/L (3.5-5.1); Sodium 139 mEq/L (136-145)
[2021-10-20] MEDS ORDERED: *HR* Labetalol 20 MG/4 ML SYRINGE IVP PRN (13:10)
[2021-10-20] MEDS: cefTRIAXone 1,000 MG in 0.9 % Sodium Chloride 10 ML IVP SCH (13:12)
[2021-10-20] MEDS: Azithromycin 500 MG in 0.9 % Sodium Chloride 250 ML IVPB SCH (13:19)
[2021-10-20] MEDS: Divalproex (24 HR) 500 MG TABLET PO SCH (21:18)
[2021-10-20] MEDS: *HR* LORazepam 0.5 MG TABLET PO SCH (21:18)
[2021-10-21 04:36] LABS: Basophils % 0.4 %; Eosinophils # 0.3 K/mcL (0.0-0.6); Eosinophils % 3.8 %; Hematocrit 36.6 % (37.5-50.1); Hemoglobin 11.6 g/dL (12.9-16.9); Immature Granulocytes % 0.4 % (0-4); Lymphocytes # 0.6 K/mcL (0.6-4.6); Lymphocytes % 8.9 %; Mean Corpuscular HGB Conc 31.7 g/dL (31.6-35.5); Mean Corpuscular Hemoglobin 27.7 pg (28.0-33.3); Mean Corpuscular Volume 87.4 fL (83.0-100.0); Mean Platelet Volume 10.8 fL (9.4-12.4); Monocytes # 0.8 K/mcL (0.0-1.3); Monocytes % 11.5 %; Neutrophils # 5.3 K/mcL (1.6-8.9); Platelet Count 157 K/mcL (140-400); Red Blood Count 4.19 M/mcL (4.19-5.50); Red Cell Distribution Width 13.5 % (11.5-14.5); White Blood Count 7.1 K/mcL (4.3-11.1)
[2021-10-21 04:57] LABS: BUN/Creatinine Ratio 22 (6-26); Blood Urea Nitrogen 17 mg/dL (6-20); Calcium 9.2 mg/dL (8.6-10.3); Carbon Dioxide 32 mEq/L (23-29); Chloride 104 mEq/L (98-107); Glucose 96 mg/dL (70-105); Osmolality,Calculated 289 (280-300); Potassium 4.1 mEq/L (3.5-5.1); Sodium 139 mEq/L (136-145)
[2021-10-21] MEDS: *HR* Heparin 5,000 UNIT/ML VIAL SQ SCH (05:24)
[2021-10-21] MEDS ORDERED: E-Z-PAQUE (BARIUM SULF) SUSP 1 BOTTLE PO ONE (09:28)
[2021-10-21] MEDS ORDERED: E-Z-HD (BARIUM SULF) SUSPENSION PO ONE (09:28)
[2021-10-21] MEDS: Aspirin Enteric Coated 81 MG Tablet PO SCH (10:20)
[2021-10-21] MEDS: *HR* LORazepam 0.5 MG TABLET PO SCH ×3 (10:20→20:50)
[2021-10-21] MEDS: Azithromycin 500 MG in 0.9 % Sodium Chloride 250 ML IVPB SCH (10:21)
[2021-10-21] MEDS: cefTRIAXone 1,000 MG in 0.9 % Sodium Chloride 10 ML IVP SCH (10:30)
[2021-10-21] MEDS ORDERED: *HR* Heparin 5,000 UNIT/ML VIAL IVP PRN ×2 (13:44)
[2021-10-21] MEDS ORDERED: *HR* Heparin 5,000 UNIT/ML VIAL IVP ONE (13:44)
[2021-10-21] MEDS: Heparin 25,000UNIT/250ML 1/2NS 25,000 UNIT/250 ML IV.SOLN IVC SCH (15:08)
[2021-10-21 15:43] LABS: INR 1.1; Prothrombin Time 12.2 Seconds (9.4-12.1)
[2021-10-21 15:46] LABS: Heparin anti-factor XA UFH < 0.04 IU/mL (0.30-0.70)
[2021-10-21 16:42] LABS: Hematocrit 35.4 % (37.5-50.1); Hemoglobin 11.2 g/dL (12.9-16.9); Immature Platelets 8.3 % (1.1-6.1); Mean Corpuscular HGB Conc 31.6 g/dL (31.6-35.5); Mean Corpuscular Hemoglobin 27.8 pg (28.0-33.3); Mean Corpuscular Volume 87.8 fL (83.0-100.0); Mean Platelet Volume 11.2 fL (9.4-12.4); Red Blood Count 4.03 M/mcL (4.19-5.50); Red Cell Distribution Width 13.4 % (11.5-14.5); White Blood Count 5.9 K/mcL (4.3-11.1)
[2021-10-21] MEDS: Divalproex (24 HR) 500 MG TABLET PO SCH (20:50)
[2021-10-21] MEDS: Metoprolol XL (24 HR) Succ 25 MG TAB.ER.24H PO SCH (20:50)
[2021-10-22 03:32] LABS: Hematocrit 34.5 % (37.5-50.1); Hemoglobin 11.2 g/dL (12.9-16.9); Mean Corpuscular HGB Conc 32.5 g/dL (31.6-35.5); Mean Corpuscular Volume 86.3 fL (83.0-100.0); Mean Platelet Volume 10.8 fL (9.4-12.4); Platelet Count 148 K/mcL (140-400); Red Cell Distribution Width 13.3 % (11.5-14.5); White Blood Count 4.7 K/mcL (4.3-11.1)
[2021-10-22 03:48] LABS: BUN/Creatinine Ratio 30 (6-26); Blood Urea Nitrogen 22 mg/dL (6-20); Calcium 8.8 mg/dL (8.6-10.3); Carbon Dioxide 33 mEq/L (23-29); Chloride 102 mEq/L (98-107); Glucose 99 mg/dL (70-105); Osmolality,Calculated 289 (280-300); Potassium 4.1 mEq/L (3.5-5.1); Sodium 138 mEq/L (136-145)
[2021-10-22] MEDS: Heparin 25,000UNIT/250ML 1/2NS 25,000 UNIT/250 ML IV.SOLN IVC SCH (06:44)
[2021-10-22] MEDS ORDERED: Nitroglycerin 1,000 MCG/5 ML VIAL IV ONE (09:19)
[2021-10-22] MEDS ORDERED: Iopamidol - 370 200 ML INFUS..BTL ONE (09:19)
[2021-10-22] MEDS ORDERED: *HR* Heparin 10,000 UNIT/10 ML VIAL ONE (09:19)
[2021-10-22] MEDS ORDERED: *HR* FentaNYL (PF) 100 MCG/2 ML VIAL ONE (09:19)
[2021-10-22] MEDS ORDERED: *HR* Midazolam HCl 2 MG/2 ML VIAL ONE (09:19)
[2021-10-22] MEDS ORDERED: 0.9 % Sodium Chloride 1,000 ML ONE (09:19)
[2021-10-22] MEDS ORDERED: Heparin 1,000 UNITS/500 mL 500 ML ONE (09:19)
[2021-10-22] MEDS: *HR* LORazepam 0.5 MG TABLET PO SCH ×2 (09:23→16:15)
[2021-10-22] MEDS: Aspirin Enteric Coated 81 MG Tablet PO SCH (09:23)
[2021-10-22] MEDS: Metoprolol XL (24 HR) Succ 25 MG TAB.ER.24H PO SCH (09:23)
[2021-10-22] MEDS: cefTRIAXone 1,000 MG in 0.9 % Sodium Chloride 10 ML IVP SCH (10:37)
[2021-10-22] MEDS: Azithromycin 500 MG in 0.9 % Sodium Chloride 250 ML IVPB SCH (10:53)
[2021-10-22] MEDS: Ipratropium/Albuterol Neb 3 ML IH PRN (11:13)
[2021-10-22 16:11] VITALS: BP 122/61; PULSE 72; TEMP 98.9; O2SAT 95
[2021-10-22] MEDS ORDERED: *HR* Heparin 5,000 UNIT/ML VIAL SQ SCH (18:00)
[2021-10-23] MEDS ORDERED: Azithromycin 250 MG TABLET PO SCH (09:00)
== END 2021-10-22 17:31 | disposition other institution (70) | DRG 137 ==
LOC: EMEROOARM 11:28 → 2NENU 11:28
PROVIDERS: ADMIT Internal Medicine; ATTEND Internal Medicine